=== PATIENT | male | born 1960 | race African-American/Black ===

== ENCOUNTER 2020-08-06 02:10 | Emergency (ER) | payer SELFPAY ==
[~2020-08-06] VITALS: Ht 172.7 cm; Wt 88.0 kg
[2020-08-06 04:11] VITALS: BP 159/91
[2020-08-06] MEDS ORDERED: FUROSEMIDE 100MG/10ML VIAL IVP ONE (04:30)
== END 2020-08-06 05:59 | disposition home or self-care (01) ==
LOC: ER 02:10
DX: I13.0 Hypertensive heart and chronic kidney disease with heart failure and stage 1 through stage 4 chronic kidney disease, or unspecified chronic kidney disease (principal); N43.3 Hydrocele, unspecified; E11.22 Type 2 diabetes mellitus with diabetic chronic kidney disease; N18.9 Chronic kidney disease, unspecified; I50.9 Heart failure, unspecified; F17.210 Nicotine dependence, cigarettes, uncomplicated; Z88.6 Allergy status to analgesic agent; Z88.5 Allergy status to narcotic agent
CPT/HCPCS: 76870; 93005; 93976; 96374; 99284; J1940

== ENCOUNTER 2020-08-18 07:56 | Inpatient (IN) | payer MEDICAID ==
[~2020-08-18] VITALS: Ht 182.9 cm; Wt 72.6 kg
[2020-08-18 08:58] LABS: CHLORIDE 112 mEq/L (98-107)
[2020-08-18 09:02] LABS: ETHANOL BLOOD < 10 mg/dL
[2020-08-18] MEDS ORDERED: CEFTRIAXONE 1 G PREMIX 50 ML IV ONE (09:15)
[2020-08-18 09:32] LABS: HEMATOCRIT. 26.6 % (42.0-52.0); HEMOGLOBIN. 8.6 g/dL (14.0-18.0); MEAN CORPUSCULAR HEMOGLOBIN 28.7 pg (28.0-32.0); MEAN CORPUSCULAR VOLUME 89.1 fL (80.0-94.0); MEAN PLATELET VOLUME 8.5 fl (7.4-10.4); PLATELET 142 x1000/uL (130-400); RED BLOOD CELL COUNT 2.99 mill/uL (4.7-6.1); RED CELL DISTRIBUTION WIDTH 17.6 % (11.6-14.6)
[2020-08-18 11:23] LABS: PLATELET ESTIMATE NORMAL
[2020-08-18] MEDS ORDERED: DOCUSATE SODIUM 100MG CAPSULE PO PRN (11:30)
[2020-08-18] MEDS ORDERED: ONDANSETRON HCL 4MG/2ML INJ IV PRN (11:30)
[2020-08-18] MEDS ORDERED: CLONIDINE 0.1MG TABLET PO PRN (11:30)
[2020-08-18] MEDS ORDERED: MAGNESIUM/ALUMINUM HYDROXIDE/SIMETHICONE 30ML UDC PO PRN (11:30)
[2020-08-18] MEDS ORDERED: IPRATROPIUM/ALBUTEROL 0.5-3(2.5)MG/3ML NEB NEB PRN (11:30)
[2020-08-18] MEDS ORDERED: NITROGLYCERIN 0.4MG TABLET SL SL PRN (11:30)
[2020-08-18] MEDS ORDERED: ENOXAPARIN 40MG/0.4ML SYR SUBCUT SCH (11:30)
[2020-08-18] MEDS ORDERED: ACETAMINOPHEN 325MG TABLET PO PRN ×2 (11:30)
[2020-08-18] MEDS ORDERED: DEXTROSE 50% WATER 50ML SYRINGE IV PRN (11:30)
[2020-08-18] MEDS: FAMOTIDINE 20MG TABLET PO SCH (12:00)
[2020-08-18] MEDS ORDERED: METOLAZONE 10MG TABLET PO SCH (12:00)
[2020-08-18 12:13] LABS: FOLIC ACID (FOLATE) SERUM > 20.00 ng/mL (>5.38)
[2020-08-18 12:23] LABS: VITAMIN B12 SERUM 1922 pg/mL (211-911)
[2020-08-18] MEDS: ZINC SULFATE 220 MG ( 50 ) CAPSULE PO SCH (12:59)
[2020-08-18] MEDS: AMLODIPINE 10MG TABLET PO SCH (13:00)
[2020-08-18] MEDS: ASCORBIC ACID 500 MG TABLET PO SCH ×2 (13:00→22:59)
[2020-08-18] MEDS: ENOXAPARIN 30MG/0.3ML SYR SUBCUT SCH (13:01)
[2020-08-18] MEDS: SEVELAMER CARBONATE 800 MG TABLET PO SCH ×2 (13:01→18:17)
[2020-08-18] MEDS: BLOOD SUGAR DIAGNOSTIC STRIP TEST SCH ×3 (13:20→21:00)
[2020-08-18] MEDS: INSULIN LISPRO 100 UNITS/ML SUBCUT SCH ×3 (13:47→23:11)
[2020-08-18 14:44] LABS: D-DIMER 3.01 mg/L FEU (<0.50); INR 1.1
[2020-08-18 14:46] LABS: CREATINE KINASE MB FRACTION 25.1 ng/mL (0.5-3.6)
[2020-08-18 16:00] VITALS: BP 124/77
[2020-08-18 16:55] VITALS: BP 124/77
[2020-08-18] MEDS: FUROSEMIDE 40MG/4ML VIAL IVP SCH (18:17)
[2020-08-18] MEDS ORDERED: ZOLPIDEM TARTRATE 5MG TABLET PO PRN (20:00)
[2020-08-18] MEDS ORDERED: FAMOTIDINE 20MG TABLET PO SCH (21:00)
[2020-08-18] MEDS: GUAIFENESIN 200MG/10ML SUGAR FREE UDC PO PRN (22:59)
[2020-08-18] MEDS: AZITHROMYCIN 250 MG in DEXT 5% WATER 250 ML IV SCH (23:09)
[2020-08-19] VITALS: BP 141/89
[2020-08-19 01:02] LABS: CREATINE KINASE MB FRACTION 22.4 ng/mL (0.5-3.6)
[2020-08-19] MEDS: FUROSEMIDE 40MG/4ML VIAL IVP SCH ×2 (05:23→17:35)
[2020-08-19 05:46] VITALS: BP 131/80
[2020-08-19] MEDS: BLOOD SUGAR DIAGNOSTIC STRIP TEST SCH ×4 (07:27→21:00)
[2020-08-19 08:00] VITALS: BP 120/79
[2020-08-19] MEDS: CEFTRIAXONE 1,000 MG in DEXTROSE 5% WATER 50 ML IV SCH (08:34)
[2020-08-19] MEDS: SEVELAMER CARBONATE 800 MG TABLET PO SCH ×3 (08:34→17:37)
[2020-08-19] MEDS: FAMOTIDINE 20MG TABLET PO SCH (08:34)
[2020-08-19] MEDS: ENOXAPARIN 30MG/0.3ML SYR SUBCUT SCH (08:35)
[2020-08-19] MEDS: ASCORBIC ACID 500 MG TABLET PO SCH ×2 (08:35→21:04)
[2020-08-19] MEDS: ZINC SULFATE 220 MG ( 50 ) CAPSULE PO SCH (08:35)
[2020-08-19] MEDS: AMLODIPINE 10MG TABLET PO SCH (08:35)
[2020-08-19] MEDS: INSULIN LISPRO 100 UNITS/ML SUBCUT SCH ×4 (08:37→22:11)
[2020-08-19 09:31] LABS: HEMATOCRIT. 26.1 % (42.0-52.0); HEMOGLOBIN. 8.3 g/dL (14.0-18.0); MEAN CORPUSCULAR HEMOGLOBIN 28.2 pg (28.0-32.0); MEAN CORPUSCULAR VOLUME 88.6 fL (80.0-94.0); MEAN PLATELET VOLUME 8.2 fl (7.4-10.4); PLATELET 117 x1000/uL (130-400); RED BLOOD CELL COUNT 2.95 mill/uL (4.7-6.1); RED CELL DISTRIBUTION WIDTH 18.2 % (11.6-14.6)
[2020-08-19 09:48] LABS: CHLORIDE 110 mEq/L (98-107)
[2020-08-19 09:57] LABS: PHOSPHORUS 4.4 mg/dL (2.5-4.9)
[2020-08-19 12:00] VITALS: BP 114/74
[2020-08-19 16:00] VITALS: BP 113/71
[2020-08-19] MEDS: GUAIFENESIN 200MG/10ML SUGAR FREE UDC PO PRN (17:35)
[2020-08-19] MEDS: AZITHROMYCIN 250 MG in DEXT 5% WATER 250 ML IV SCH (18:20)
[2020-08-19 20:00] VITALS: BP 140/67
[2020-08-19 20:44] LABS: PLATELET ESTIMATE DECREASED
[2020-08-19] MEDS: DIPHENHYDRAMINE 50MG/ML VIAL IV PRN (21:05)
[2020-08-20] VITALS: BP 131/81
[2020-08-20 04:00] VITALS: BP 154/71
[2020-08-20] MEDS: DIPHENHYDRAMINE 50MG/ML VIAL IV PRN (06:35)
[2020-08-20] MEDS: FUROSEMIDE 40MG/4ML VIAL IVP SCH (06:35)
[2020-08-20] MEDS: BLOOD SUGAR DIAGNOSTIC STRIP TEST SCH ×2 (06:36→12:53)
[2020-08-20] MEDS: INSULIN LISPRO 100 UNITS/ML SUBCUT SCH ×2 (07:50→13:29)
[2020-08-20 08:00] VITALS: BP 154/75
[2020-08-20] MEDS: ASCORBIC ACID 500 MG TABLET PO SCH (09:25)
[2020-08-20] MEDS: ZINC SULFATE 220 MG ( 50 ) CAPSULE PO SCH (09:25)
[2020-08-20] MEDS: FAMOTIDINE 20MG TABLET PO SCH (09:25)
[2020-08-20] MEDS: AMLODIPINE 10MG TABLET PO SCH (09:26)
[2020-08-20] MEDS: SEVELAMER CARBONATE 800 MG TABLET PO SCH ×2 (09:26→13:23)
[2020-08-20] MEDS: ENOXAPARIN 30MG/0.3ML SYR SUBCUT SCH (09:27)
[2020-08-20] MEDS: CEFTRIAXONE 1,000 MG in DEXTROSE 5% WATER 50 ML IV SCH (10:04)
[2020-08-20] MEDS ORDERED: DESMOPRESSIN ACETATE 4MCG/ML AMP IV ONE (10:45)
[2020-08-20] MEDS ORDERED: SODIUM CHLORIDE 0.9% IV NR (13:00)
[2020-08-20] MEDS ORDERED: DESMOPRESSIN ACETATE IV NR (13:00)
[2020-08-20] MEDS ORDERED: AZITHROMYCIN 500 MG TABLET PO SCH (17:00)
[2020-08-20] MEDS ORDERED: EPOETIN ALFA-EPBX 10,000 UNIT/ML VIAL SUBCUT SCH (21:00)
== END 2020-08-20 19:01 | disposition left against medical advice (07) | DRG 194 ==
LOC: ER 08:09 → 6WST 10:50 → EDBEDREQ 10:52 → EDBEDREQTM 10:52 → ENRESERV 13:21 → 7WST 08-19 05:05 → 6WST 08-20 00:15
PROVIDERS: ADMIT Internal Medicine; ATTEND Internal Medicine
PROC: 5A1D70Z Performance of Urinary Filtration, Intermittent, Less than 6 Hours Per Day (ICD-10-PCS; principal; 2020-08-18)
PROC: 5A1D70Z Performance of Urinary Filtration, Intermittent, Less than 6 Hours Per Day (ICD-10-PCS; 2020-08-19)
PROC: 5A1D70Z Performance of Urinary Filtration, Intermittent, Less than 6 Hours Per Day (ICD-10-PCS; 2020-08-20)
DX: I13.2 Hypertensive heart and chronic kidney disease with heart failure and with stage 5 chronic kidney disease, or end stage renal disease (principal); E87.5 Hyperkalemia; G92 Toxic encephalopathy; E11.22 Type 2 diabetes mellitus with diabetic chronic kidney disease; E44.0 Moderate protein-calorie malnutrition; D63.8 Anemia in other chronic diseases classified elsewhere; Z20.828 Contact with and (suspected) exposure to other viral communicable diseases; E83.51 Hypocalcemia; E87.2 Acidosis; N04.9 Nephrotic syndrome with unspecified morphologic changes; J44.9 Chronic obstructive pulmonary disease, unspecified; E11.42 Type 2 diabetes mellitus with diabetic polyneuropathy; Z53.29 Procedure and treatment not carried out because of patient's decision for other reasons; K74.60 Unspecified cirrhosis of liver; N18.6 End stage renal disease; Z99.2 Dependence on renal dialysis; Z88.6 Allergy status to analgesic agent; Z88.5 Allergy status to narcotic agent; Z88.8 Allergy status to other drugs, medicaments and biological substances; Z68.21 Body mass index [BMI] 21.0-21.9, adult; Z91.19 Patient's noncompliance with other medical treatment and regimen; Z79.4 Long term (current) use of insulin; I50.33 Acute on chronic diastolic (congestive) heart failure
CPT/HCPCS: 36415; 71045; 80053; 80061; 80307; 80320; 80329; 82140; 82550; 82553; 82607; 82746; 82962; 83036; 83540; 83550; 83605; 83615; 83735; 84100; 84145; 84443; 84484; 85025; 85379; 87635; 93970; 99285; J0456; J0696; J1200; J1650; J1815; J1940; J2597; J7040; J7060; G0480